=== PATIENT | male | born 1940 | race African-American/Black ===

== ENCOUNTER 2025-01-06 08:21 | Emergency (ER) | payer MEDICARE, MEDICAID ==
[~2025-01-06] VITALS: Ht 177.8 cm; Wt 63.0 kg
[2025-01-06 08:35] VITALS: O2SAT 99
[2025-01-06 09:56] LABS: BASOPHILS % 0.8 % (0.0-2.0); EOSINOPHILS % 1.9 % (0.0-5.0); HEMATOCRIT. 38.8 % (42.0-52.0); HEMOGLOBIN. 12.3 g/dL (14.0-18.0); LYMPHOCYTES % 23.2 % (20.0-50.0); MEAN PLATELET VOLUME 7.8 fl (7.4-10.4); MONOCYTES % 13.1 % (2.0-8.0); NEUTROPHILS % 61.0 % (40.0-76.0); PLATELET 246 x1000/uL (130-400); RED BLOOD CELL COUNT 4.61 mill/uL (4.7-6.1); RED CELL DISTRIBUTION WIDTH 17.4 % (11.6-14.6)
[2025-01-06 10:08] LABS: CREATININE 1.3 mg/dL (0.6-1.3)
[2025-01-06 10:09] LABS: UREA NITROGEN BLOOD 7 mg/dL (9-23)
[2025-01-06] MEDS ORDERED: CALC-775 MT (11:20)
[2025-01-06 11:44] VITALS: BP 165/100; PULSE 60; RESP 19; TEMP 37.1; O2SAT 100
== END 2025-01-06 11:45 | disposition home or self-care (01) ==
LOC: ER 08:21
DX: G62.9 Polyneuropathy, unspecified (principal); E83.51 Hypocalcemia; I10 Essential (primary) hypertension; Z55.6 Problems related to health literacy; Z95.0 Presence of cardiac pacemaker
CPT/HCPCS: 36415; 80048; 85025; 99283